=== PATIENT | female | born 1980 | race Caucasian/White ===

== ENCOUNTER 2017-06-14 08:51 | Emergency (ER) | payer MEDICAID, SELFPAY | END 2017-06-14 10:38 | disposition home or self-care (01) | PROVIDERS: Emergency Provider Nurse Practitioner Family; Family Provider Family Medicine; Visit Provider Nurse Practitioner Family | DX: S60.862A Insect bite (nonvenomous) of left wrist, initial encounter (principal); S60.861A Insect bite (nonvenomous) of right wrist, initial encounter; L08.9 Local infection of the skin and subcutaneous tissue, unspecified; F17.210 Nicotine dependence, cigarettes, uncomplicated; F41.8 Other specified anxiety disorders; Z88.8 Allergy status to other drugs, medicaments and biological substances | CPT/HCPCS: 87070; 96372; 99202 ==

== ENCOUNTER 2017-06-24 08:00 | Outpatient (RCR) | payer OTHER, SELFPAY | END 2017-06-24 23:59 | LOC: PT 08:00 | PROVIDERS: PCP Family Medicine; Visit Provider Orthopaedic Surgery | DX: S43.431A Superior glenoid labrum lesion of right shoulder, initial encounter (principal) | CPT/HCPCS: 97010; 97014; 97016; 97033; 97110; 97140; 97162; 97164; G0283 ==

== ENCOUNTER 2017-06-25 17:25 | Emergency (ER) | payer MEDICAID, SELFPAY ==
[2017-06-25 18:35] VITALS: BP 122/73; PULSE 75; RESP 18; TEMP 37.5; O2SAT 98; BMI 30.7
--- NOTE | 2017-06-25 19:16 | HMH.EDALLER ---
ED Disposition Clinical Impression: Acute urticaria, Viral upper respiratory illness, Influenza B Disposition: Home, Self-Care Condition on Discharge: Good Instructions: DI for Viral Upper Respiratory Infection -- Adult, DI for Hives, DI for Influenza -- Adult Additional Instructions: Additional instructions for ALLERGIC REACTION: See your physician as soon as possible for further evaluation. Return immediately if severe intolerable rash or itching, trouble breathing, or faintness. Additional instructions for UPPER RESPIRATORY INFECTION: See your physician as soon as possible for further evaluation. Return immediately if you have an uncontrollable fever greater than 104 degrees, difficulty breathing or shortness of breath, persistent vomiting, or inability to swallow. Prescriptions: Famotidine [Pepcid 20mg Tablet] 20 mg PO BID 5 Days #10 tablet hydrOXYzine pamoate [Hydroxyzine Pamoate] 50 mg PO Q6H 5 Days #20 capsule predniSONE [Prednisone 20mg Tab] 40 mg PO DAILY 5 Days #10 tab Referrals: Klever Pagan [Primary Care Provider] - - Critical Care Critical Care Time: No Attestation: On 06/25/17, the high probability of a clinically significant, sudden or life threatening deterioration of the following system(s) required my full and direct attention, intervention and personal management. The time I documented below is in addition to time spent performing reported procedures but includes the following listed in this critical care notation. Medical Decision Making Vital Signs: 06/25/17 18:35 Temperature 99.5 F Temperature Source Oral Pulse Rate [Left Radial] 75 Respiratory Rate 18 Blood Pressure [Right Arm] 122/73 Blood Pressure Mean [Right Arm] 89 Blood Pressure Source [Right Arm] Automatic Cuff Blood Pressure Position [Right Arm] Sitting 02 Sat by Pulse Oximetry 98 Oxygen Delivery Method Room Air - Lab Data Lab Results 06/25/17 19:08: Influenza Type A Ag Negative, Influenza Type B Ag Positive Orders (Tests/Meds): ED MEDICATIONS Generic Name Dose Route Start Last Admin Trade Name Freq PRN Reason Stop Dose Admin Sodium Chloride 10 ml 06/25/17 19:15 Saline Flush 10ml Syringe IV 07/25/17 19:14 NEEDED PRN Maintain IV Site Discontinued Medications Generic Name Dose Route Start Last Admin Trade Name Freq PRN Reason Stop Dose Admin Diphenhydramine HCl 25 mg 06/25/17 19:15 Benadryl 50mg/1ml Vial IV 06/25/17 19:16 ONCE ONE Famotidine 20 mg 06/25/17 19:15 Pepcid 20mg/2ml Vial IV 06/25/17 19:16 ONCE ONE Methylprednisolone Sodium Succinate 125 mg 06/25/17 19:15 Solu-Medrol 125mg/2ml Vial IV 06/25/17 19:16 ONCE ONE - Demarco Inquiry Pt receiving controlled substance: No Medical Decision Making Narrative: Discussed influenza B result. Discussed Tamiflu. The patient's symptoms have been present righted about 48 hours. She declines Tamiflu. Allergic React/Insect Bite HPI - General Chief complaint: Allergic Reaction Stated complaint: Rash Mode of Arrival - ED Triage: Ambulatory Limitations: No Limitations - History of Present Illness HPI narrative: The patient has 2 separate complaints. Her primary complaint is an allergic reaction. She started getting a hive-like rash this morning with some swelling of her right hand. The rash is pruritic. She has taken Benadryl for the rash. She has a previous similar allergic reaction which she believed was secondary to a spider bite. She also currently has a respiratory infection with cough congestion. No fever. She has been taking DayQuil and [id number] sinus medication for that. Allergies/Adverse Reactions: Allergies Allergy/AdvReac Type Severity Reaction Status Date / Time promethazine [From PHENERGAN] Allergy Unknown Verified 06/25/17 19:40 sumatriptan [From IMITREX] Allergy Unknown ANAPHYLAXIS Verified 06/25/17 19:40 - Related Data [facility]
--- NOTE | 2017-06-25 19:19 | ED_ITS ---
ED Disposition Clinical Impression: Acute urticaria, Viral upper respiratory illness, Influenza B Disposition: Home, Self-Care Condition on Discharge: Good Instructions: DI for Viral Upper Respiratory Infection -- Adult, DI for Hives, DI for Influenza -- Adult Additional Instructions: Additional instructions for ALLERGIC REACTION: See your physician as soon as possible for further evaluation. Return immediately if severe intolerable rash or itching, trouble breathing, or faintness. Additional instructions for UPPER RESPIRATORY INFECTION: See your physician as soon as possible for further evaluation. Return immediately if you have an uncontrollable fever greater than 104 degrees, difficulty breathing or shortness of breath, persistent vomiting, or inability to swallow. Prescriptions: Famotidine [Pepcid 20mg Tablet] 20 mg PO BID 5 Days #10 tablet hydrOXYzine pamoate [Hydroxyzine Pamoate] 50 mg PO Q6H 5 Days #20 capsule predniSONE [Prednisone 20mg Tab] 40 mg PO DAILY 5 Days #10 tab Referrals: Klever Pagan [Primary Care Provider] - - Critical Care Critical Care Time: No Attestation: On 06/25/17, the high probability of a clinically significant, sudden or life threatening deterioration of the following system(s) required my full and direct attention, intervention and personal management. The time I documented below is in addition to time spent performing reported procedures but includes the following listed in this critical care notation. Medical Decision Making Vital Signs: 06/25/17 18:35 Temperature 99.5 F Temperature Source Oral Pulse Rate [Left Radial] 75 Respiratory Rate 18 Blood Pressure [Right Arm] 122/73 Blood Pressure Mean [Right Arm] 89 Blood Pressure Source [Right Arm] Automatic Cuff Blood Pressure Position [Right Arm] Sitting 02 Sat by Pulse Oximetry 98 Oxygen Delivery Method Room Air - Lab Data Lab Results 06/25/17 19:08: Influenza Type A Ag Negative, Influenza Type B Ag Positive Orders (Tests/Meds): ED MEDICATIONS Generic Name Dose Route Start Last Admin Trade Name Freq PRN Reason Stop Dose Admin Sodium Chloride 10 ml 06/25/17 19:15 Saline Flush 10ml Syringe IV 07/25/17 19:14 NEEDED PRN Maintain IV Site Discontinued Medications Generic Name Dose Route Start Last Admin Trade Name Freq PRN Reason Stop Dose Admin Diphenhydramine HCl 25 mg 06/25/17 19:15 Benadryl 50mg/1ml Vial IV 06/25/17 19:16 ONCE ONE Famotidine 20 mg 06/25/17 19:15 Pepcid 20mg/2ml Vial IV 06/25/17 19:16 ONCE ONE Methylprednisolone Sodium Succinate 125 mg 06/25/17 19:15 Solu-Medrol 125mg/2ml Vial IV 06/25/17 19:16 ONCE ONE - Demarco Inquiry Pt receiving controlled substance: No Medical Decision Making Narrative: Discussed influenza B result. Discussed Tamiflu. The patient's symptoms have been present righted about 48 hours. She declines Tamiflu. Allergic React/Insect Bite HPI - General Chief complaint: Allergic Reaction Stated complaint: Rash Mode of Arrival - ED Triage: Ambulatory Limitations: No Limitations - History of Present Illness HPI narrative: The patient has 2 separate complaints. Her primary complaint is an allergic reaction. She started getting a
[2017-06-25 20:42] VITALS: BP 139/79; PULSE 83; RESP 16; TEMP 37.1; O2SAT 100
== END 2017-06-25 20:44 | disposition home or self-care (01) ==
LOC: UTC 17:29 → ER 18:28
PROVIDERS: Emergency Provider Emergency Medicine; Family Provider Family Medicine; PCP Family Medicine
DX: J11.1 Influenza due to unidentified influenza virus with other respiratory manifestations (principal); L50.9 Urticaria, unspecified; F17.210 Nicotine dependence, cigarettes, uncomplicated
CPT/HCPCS: 87275; 87276; 96374; 96375; 99282

== ENCOUNTER 2017-08-01 08:30 | Outpatient (RCR) | payer OTHER, MEDICAID, SELFPAY | END 2017-08-01 08:31 | disposition home or self-care (01) | LOC: PT 08:30 | PROVIDERS: Family Provider Family Medicine; PCP Family Medicine; Visit Provider Orthopaedic Surgery | DX: S43.431A Superior glenoid labrum lesion of right shoulder, initial encounter (principal) | CPT/HCPCS: 97110; 97164 ==

== ENCOUNTER 2017-08-27 15:27 | Emergency (ER) | payer MEDICAID, SELFPAY ==
[2017-08-27 15:40] VITALS: BP 145/68; PULSE 92; RESP 20; TEMP 36.8; O2SAT 100; BMI 32.8
--- NOTE | 2017-08-27 15:53 | HMH.EDUTC ---
[facility] [place] Clinical Impression: Insect bites and stings Qualifiers: Encounter type: initial encounter Injury intent: accidental or unintentional Qualified Code(s): T63.481A - Toxic effect of venom of other arthropod, accidental (unintentional), initial encounter; W57.XXXA - Bitten or stung by nonvenomous insect and other nonvenomous arthropods, initial encounter Disposition: Home, Self-Care Condition on Discharge: Good Instructions: DI for Insect Bites and Stings, How to Care for an Insect Bite or Sting Additional Instructions: * Start zyrtec 10mg daily and if no improvement, safe to take twice a day for itching * Discussed antibiotics but since you didn't feel like they were necessary multiple previous episodes of same symptoms, we will not start at this time. however, follow up immediately for new or worsening symptoms. * Monitor closely. Outlining redness so that you can monitor easier is a great idea. FU immediately for new or worsening symptoms ( including but not limited to redness, swelling, red streaking, fever, chills) but also FU tomorrow for a wound check * Cool compresses 15 min 3-4 times a day * Monitor Temp. Seek treatment if fever develops. * For pain/inflammation: Tylenol every 4 hours as needed no more then 5 times a day or 4000mg in 24 hours and/or ibuprofen every 6 hours as needed no more then 3200mg in 24 hours (as long as your primary care doctor has told you that it is ok to take both) for fever/aches/pain. ER if fever no less than 101 despite tylenol and ibuprofen * Start steroid tomorrow. You received a fast acting injection of steroids in clinic to help with symptoms today. Prescriptions: methylPREDNISolone [Medrol] 4 mg PO DIRECTED #1 tab.ds.pk Referrals: Klever Pagan [Primary Care Provider] - (Return immediately for new or worsening symptoms but otherwise, follow up with primary care in 1-2 days if not improving. ) Time of Disposition: 16:24 Medical Decision Making - Medical Records Medical records reviewed: Yes: I reviewed the patient's medical records. MR Comment: May 2017 visit for same symptoms. Seen by me. Same HPI. Treated w/ dexamethasone and rocephin. Rx clindamycin and medrol dose pack. Wound culture negative for growth. Pt denies needing antibiotics. Resolved with just steroids. Vital Signs: 08/27/17 15:40 Temperature 98.3 F Temperature Source Oral Pulse Rate [Right Brachial] 92 H Respiratory Rate 20 Blood Pressure [Right Arm] 145/68 Blood Pressure Mean [Right Arm] 93 Blood Pressure Source [Right Arm] Automatic Cuff Blood Pressure Position [Right Arm] Sitting 02 Sat by Pulse Oximetry 100 Oxygen Delivery Method Room Air Orders (Tests/Meds): ED MEDICATIONS Discontinued Medications Generic Name Dose Route Start Last Admin Trade Name Lance PRN Reason Stop Dose Admin Dexamethasone Sodium Phosphate 8 mg 08/27/17 16:03 08/27/17 16:11 Decadron 4mg/Ml 1ml Vial IM 08/27/17 16:04 8 mg ONCE ONE Administration - Demarco Inquiry Pt receiving controlled substance: No - Reevaluation(s) Time: 16:20 Reevaluation #1: Itching already nearly resolved. lateral less erythematous around border and medial 50 % resolved. [facility] [place] HPI - General Stated complaint: Possible spider bite on right upper arm Time Seen by Provider: 08/27/17 15:53 Mode of Arrival: Family Vehicle Source of Information: Patient Limitations: No Limitations Description of Symptoms (Recalled from Triage Doc. by RN): possible spider bite right arm HEENT Symptoms (Recalled from RN notes): No Resp Symptoms (Recalled from RN notes): No Skin Symptoms (Recalled from RN notes): Yes (possible spider bite right arm) MS Symptoms (Recalled from RN notes): No Functional Status (Recalled from RN notes): n/a - History of Present Illness Provider Complaint: c/o itchy bites to right upper arm, x2. First noticed yesterday but worsened today. Hx of ramírez spider bites in the past with exact same symptoms . No treatme
--- NOTE | 2017-08-27 15:58 | ED_ITS ---
[facility] [place] Disposition Clinical Impression: Insect bites and stings Qualifiers: Encounter type: initial encounter Injury intent: accidental or unintentional Qualified Code(s): T63.481A - Toxic effect of venom of other arthropod, accidental (unintentional), initial encounter; W57.XXXA - Bitten or stung by nonvenomous insect and other nonvenomous arthropods, initial encounter Disposition: Home, Self-Care Condition on Discharge: Good Instructions: DI for Insect Bites and Stings, How to Care for an Insect Bite or Sting Additional Instructions: * Start zyrtec 10mg daily and if no improvement, safe to take twice a day for itching * Discussed antibiotics but since you didn't feel like they were necessary multiple previous episodes of same symptoms, we will not start at this time. however, follow up immediately for new or worsening symptoms. * Monitor closely. Outlining redness so that you can monitor easier is a great idea. FU immediately for new or worsening symptoms ( including but not limited to redness, swelling, red streaking, fever, chills) but also FU tomorrow for a wound check * Cool compresses 15 min 3-4 times a day * Monitor Temp. Seek treatment if fever develops. * For pain/inflammation: Tylenol every 4 hours as needed no more then 5 times a day or 4000mg in 24 hours and/or ibuprofen every 6 hours as needed no more then 3200mg in 24 hours (as long as your primary care doctor has told you that it is ok to take both) for fever/aches/pain. ER if fever no less than 101 despite tylenol and ibuprofen * Start steroid tomorrow. You received a fast acting injection of steroids in clinic to help with symptoms today. Prescriptions: methylPREDNISolone [Medrol] 4 mg PO DIRECTED #1 tab.ds.pk Referrals: Klever Pagan [Primary Care Provider] - (Return immediately for new or worsening symptoms but otherwise, follow up with primary care in 1-2 days if not improving. ) Time of Disposition: 16:24 Medical Decision Making - Medical Records Medical records reviewed: Yes: I reviewed the patient's medical records. MR Comment: May 2017 visit for same symptoms. Seen by me. Same HPI. Treated w/ dexamethasone and rocephin. Rx clindamycin and medrol dose pack. Wound culture negative for growth. Pt denies needing antibiotics. Resolved with just steroids. Vital Signs: 08/27/17 15:40 Temperature 98.3 F Temperature Source Oral Pulse Rate [Right Brachial] 92 H Respiratory Rate 20 Blood Pressure [Right Arm] 145/68 Blood Pressure Mean [Right Arm] 93 Blood Pressure Source [Right Arm] Automatic Cuff Blood Pressure Position [Right Arm] Sitting 02 Sat by Pulse Oximetry 100 Oxygen Delivery Method Room Air Orders (Tests/Meds): ED MEDICATIONS Discontinued Medications Generic Name Dose Route Start Last Admin Trade Name Freq PRN Reason Stop Dose Admin Dexamethasone Sodium Phosphate 8 mg 08/27/17 16:03 08/27/17 16:11 Decadron 4mg/Ml 1ml Vial IM 08/27/17 16:04 8 mg ONCE ONE Administration - Demarco Inquiry Pt receiving controlled substance: No - Reevaluation(s) Time: 16:20 Reevaluation #1: Itching already nearly resolved. lateral less erythematous around border and medial 50 % resolved. [facility] [place] HPI - General Stated complaint: Possible spider bite on right upper arm Time Seen by Provider: 08/27/17 15:53 Mode of Arrival: Family Vehicle Source of Information: Patient Limitations: No Limitations Description of Symptoms (R
[2017-08-27 16:30] VITALS: BP 138/70; PULSE 88; RESP 20; TEMP 36.9; O2SAT 100
== END 2017-08-27 16:32 | disposition home or self-care (01) ==
PROVIDERS: Emergency Provider Nurse Practitioner Family; Family Provider Family Medicine; PCP Family Medicine
DX: S50.361A Insect bite (nonvenomous) of right elbow, initial encounter (principal); W57.XXXA Bitten or stung by nonvenomous insect and other nonvenomous arthropods, initial encounter; Z88.8 Allergy status to other drugs, medicaments and biological substances
CPT/HCPCS: 96372; 99202

== ENCOUNTER 2020-05-05 15:42 | Emergency (ER) | payer BC, MEDICAID, SELFPAY ==
--- NOTE | 2020-05-05 15:37 | ECG_ITS ---
APPROVED REPORT Exam: Resting ECG HR:92 bpm ECG Measurements Heart Rate 92 AXES OH 150 P 65 QRSd 88 QRS 71 QT 372 T 56 QTc 460 Conclusion Normal sinus rhythm Normal ECG Electronically signed by : Jed Duran, 05/07/2020 06:52:59
[2020-05-05 15:42] VITALS: BP 163/100; PULSE 93; RESP 17; TEMP 36.6; O2SAT 98; BMI 35.5
[2020-05-05 15:59] LABS: Basophils # 0.1 K/mm3 (0-0.2); Basophils % 0.7 % (0.1-2.0); Eosinophils # 0.1 K/mm3 (0.0-0.4); Eosinophils % 0.9 % (0.1-12.0); Hematocrit 42.1 % (37.0-47.0); Hemoglobin 13.8 g/dL (12.2-16.2); Lymphocytes # 3.7 K/mm3 (0.7-4.5); Lymphocytes % 43.7 % (10-50); Mean Corpuscular HGB Conc 32.8 g/dL (31.8-35.4); Mean Corpuscular Hemoglobin 29.5 pg (27.0-31.2); Mean Corpuscular Volume 89.9 fl (81-99); Mean Platelet Volume 6.9 fl (7.4-10.4); Monocytes # 0.4 K/mm3 (0.1-1.0); Monocytes % 4.5 % (1.7-9.3); Neutrophils # 4.3 K/mm3 (1.8-7.8); Neutrophils % 50.2 % (37.0-80.0); Platelet Count 377 K/mm3 (142-424); Red Blood Count 4.68 M/mm3 (4.20-5.40); Red Cell Distribution Width 12.9 % (11.5-17.5); White Blood Count 8.5 K/mm3 (4.8-10.8)
[2020-05-05 16:03] LABS: Chloride 103 mmol/L (98-107)
[2020-05-05 16:04] LABS: Sodium 138 mmol/L (136-145)
[2020-05-05 16:07] LABS: Blood Urea Nitrogen 10 mg/dl (7-17); Calcium 9.5 mg/dl (8.4-10.2); Carbon Dioxide 26 mmol/L (22.0-30.0); Creatinine Clearance Estimated 164 mL/min (50-200); Estimated Glomerular Filt Rate 111 ml/min (>60); GFR (African American) 135 ML/MIN (>60); Glucose 99 mg/dl (74-100)
--- NOTE | 2020-05-05 16:07 | XR_ITS ---
PROCEDURE: XR CHEST 2V CLINICAL HISTORY: chest pain COMPARISON: No exams were available for comparison FINDINGS: The cardiomediastinal silhouette and pulmonary vascularity are within normal limits. No lobar consolidation or collapse. On the lateral view there is an 8 mm nodular opacity overlying the T5 vertebral body not readily identified on the frontal view possibly in the left upper lobe where there is a faint nodular opacity in this region on the frontal view. No acute bony abnormalities. IMPRESSION: No acute finding. Possible left upper/paraspinal nodule. Follow-up may confirm stability Dictated by: Nino Deleon MD 05/05/2020 17:20 Nino Dleeon MD in [place] 05/05/2020 17:20
[2020-05-05 16:10] VITALS: BP 137/85; PULSE 85; O2SAT 98
--- NOTE | 2020-05-05 16:17 | HMH.EDGENADL ---
ED Disposition Clinical Impression: Esophagitis Disposition: Home, Self-Care Condition on Discharge: Good Instructions: DI for Atypical Chest Pain, DI for Esophagitis Additional Instructions: Protonix as prescribed. Follow-up with primary care provider or with Dr. Dimas if not improved by Friday. Additional instructions for CHEST PAIN: See your physician as soon as possible for further evaluation. Return immediately if worsening chest pain, vomiting, shortness of breath, fever, coughing of blood. Prescriptions: Pantoprazole Sodium [Protonix 40mg tablet] 40 mg PO DAILY #10 tab Transmission Status: Pending to [id number] Referrals: PCPGwen [Primary Care Provider] - Rashel Dimas MD [Staff Physician] - - Critical Care Critical Care Time: No Attestation: On , the high probability of a clinically significant, sudden or life threatening deterioration of the following system(s) required my full and direct attention, intervention and personal management. The time I documented below is in addition to time spent performing reported procedures but includes the following listed in this critical care notation. Medical Decision Making - Demarco Inquiry Pt receiving controlled substance: No Vital Signs: 05/05/20 15:42 05/05/20 16:10 05/05/20 16:30 Temperature 98 F Temperature Source Oral Pulse Rate [Right Brachial] 93 H 85 86 Respiratory Rate 17 Blood Pressure [Right Arm] 163/100 H 137/85 186/104 H Blood Pressure Mean [Right Arm] 121 102 131 Blood Pressure Source [Right Arm] Automatic Cuff Automatic Cuff Automatic Cuff Blood Pressure Position [Right Arm] Sitting Sitting Sitting 02 Sat by Pulse Oximetry 98 98 96 Oxygen Delivery Method Room Air Room Air Room Air 05/05/20 16:45 Temperature Temperature Source Pulse Rate [Right Brachial] 74 Respiratory Rate Blood Pressure [Right Arm] 138/96 H Blood Pressure Mean [Right Arm] 110 Blood Pressure Source [Right Arm] Automatic Cuff Blood Pressure Position [Right Arm] Sitting 02 Sat by Pulse Oximetry 97 Oxygen Delivery Method Room Air - Lab Data Lab Results 05/05/20 15:48: WBC 8.5, RBC 4.68, Hgb 13.8, Hct 42.1, MCV 89.9, MCH 29.5, MCHC 32.8, RDW 12.9, Plt Count 377, MPV 6.9 L, Neut % (Auto) 50.2, Lymph % (Auto) 43.7, Miller % (Auto) 4.5, Eos % (Auto) 0.9, Baso % (Auto) 0.7, Neut # (Auto) 4.3, Lymph # (Auto) 3.7, Miller # (Auto) 0.4, Eos # (Auto) 0.1, Baso # (Auto) 0.1 05/05/20 15:48: Sodium 138, Potassium 4.0, Chloride 103, Carbon Dioxide 26, Anion Gap 13.0, BUN 10, Creatinine 0.60, Estimated Creat Clear 164, Estimated GFR 111, Est GFR ( Amer) 135, Glucose 99, Calcium 9.5, Troponin I < 0.01 Result diagrams: 05/05/20 15:48 05/05/20 15:48 Orders (Tests/Meds): ED MEDICATIONS Generic Name Dose Route Start Last Admin Trade Name Freq PRN Reason Stop Dose Admin Sodium Chloride 10 ml 05/05/20 16:30 05/05/20 16:38 Sodium Chloride 0.9% 10ml Vial IV 06/04/20 16:29 10 ml NEEDED PRN Administration dilute protonix Discontinued Medications Generic Name Dose Route Start Last Admin Trade Name Freq PRN Reason Stop Dose Admin Belladonna Alkaloids 60 ml 05/05/20 16:30 05/05/20 16:38 Gi Cocktail 60ml Udc PO 05/05/20 16:31 60 ml ONCE ONE Administration Pantoprazole Sodium 40 mg 05/05/20 16:30 05/05/20 16:38 Pantoprazole 40mg Vial IV 05/05/20 16:31 40 mg ONCE ONE Administration ORDERS Category Date Time Status Chest XR 2 view (NOT portable) [XR chest 2V] Stat Exams 05/05/20 16:07 Taken Troponin I Q3H Lab 05/05/20 19:00 Ordered Troponin I Q3H Lab 05/05/20 22:00 Ordered - Radiology Data #1 Image(s): Chest Image Reviewed: Yes I reviewed the patient's radiology image Preliminary Findings: Normal/NAD - ECG Data Tracing #1 EKG interpreted by Tito Polo MD: Rhythm: sinus Rate: 92 [place]: normal Ectopy: none Conduction: normal ST Segment Changes: none T Wav
[2020-05-05 16:20] LABS: Troponin I < 0.01 ng/ml (0.00-0.034)
--- NOTE | 2020-05-05 16:22 | PC.NURSE ---
pt gone to xray
--- NOTE | 2020-05-05 16:25 | PC.NURSE ---
pt back from [facility]. at bedside
[2020-05-05 16:30] VITALS: BP 186/104; PULSE 86; O2SAT 96
[2020-05-05 16:45] VITALS: BP 138/96; PULSE 74; O2SAT 97
[2020-05-05 17:08] VITALS: BP 136/82; PULSE 80; RESP 16; TEMP 36.6; O2SAT 98
== END 2020-05-05 17:22 | disposition home or self-care (01) ==
PROVIDERS: Emergency Provider Emergency Medicine
DX: K20.90 Esophagitis, unspecified without bleeding (principal); Z87.891 Personal history of nicotine dependence; F17.210 Nicotine dependence, cigarettes, uncomplicated; Z79.899 Other long term (current) drug therapy
CPT/HCPCS: 71046; 80048; 84484; 85025; 93005; 96374; 99283

== ENCOUNTER → 2020-09-12 12:49 | Outpatient (CLI) | payer BC, MEDICAID, SELFPAY ==
[2020-09-12 13:02] LABS: Basophils # 0.1 K/mm3 (0-0.2); Basophils % 0.5 % (0.1-2.0); Eosinophils # 0.1 K/mm3 (0.0-0.4); Eosinophils % 0.7 % (0.1-12.0); Hematocrit 40.6 % (37.0-47.0); Lymphocytes # 4.3 K/mm3 (0.7-4.5); Lymphocytes % 38.4 % (10-50); Mean Corpuscular HGB Conc 34.5 g/dL (31.8-35.4); Mean Corpuscular Hemoglobin 30.3 pg (27.0-31.2); Mean Corpuscular Volume 87.9 fl (81-99); Monocytes # 0.5 K/mm3 (0.1-1.0); Monocytes % 4.8 % (1.7-9.3); Neutrophils # 6.2 K/mm3 (1.8-7.8); Neutrophils % 55.7 % (37.0-80.0); Platelet Count 383 K/mm3 (142-424); Red Blood Count 4.62 M/mm3 (4.20-5.40); Red Cell Distribution Width 13.3 % (11.5-17.5); White Blood Count 11.2 K/mm3 (4.8-10.8)
--- NOTE | 2020-09-12 13:17 | US_ITS ---
PROCEDURE: US ABDOMEN LIMITED CLINICAL INDICATION: RUQ ABD PAIN COMPARISON: CT CT ABDOMEN PELVIS W CON from 06/13/2019 FINDINGS: PANCREAS: Unremarkable. No obvious mass or abnormal fluid collection. No ductal dilatation LIVER: Increased echogenicity of the liver suggesting fatty liver. There is a small area of decreased echogenicity anterior to the gallbladder fossa measuring 1 cm may be due to focal fatty sparing. Cannot exclude the possibility of a liver lesion. Nonemergent CT of the liver with hemangioma protocol may provide further evaluation. RIGHT KIDNEY: Unremarkable. Normal size and echogenicity. No hydronephrosis GALLBLADDER: No gallstones, gallbladder wall thickening, pericholecystic fluid, or biliary dilatation. Common bile duct is upper normal at 5 mm. IMPRESSION: Negative gallbladder ultrasound. Possible small liver lesion as described above Dictated by: Nino Deleon MD 09/12/2020 14:08 Nino Deleon MD in [place] 09/12/2020 14:08
[2020-09-12 13:31] LABS: Chloride 108 mmol/L (98-107); Potassium 4.4 mmoL/L (3.5-5.1); Sodium 140 mmol/L (136-145)
[2020-09-12 13:33] LABS: Alanine Aminotransferase 29 U/L (12-78); Aspartate Amino Transferase 100 U/L (14-36); Blood Urea Nitrogen 10 mg/dl (7-17); Estimated Glomerular Filt Rate 111 ml/min (>60); GFR (African American) 134 ML/MIN (>60)
[2020-09-12 13:34] LABS: Albumin Level 4.5 g/dl (3.5-5.0); Albumin/Globulin Ratio 1.7 (1.1-1.8); Alkaline Phosphatase 80 U/L (38-126); Anion Gap 12.4 mEq/L (5-15); Bilirubin,Total 0.6 mg/dl (0.2-1.3); Calcium 9.6 mg/dl (8.4-10.2); Carbon Dioxide 24 mmol/L (22.0-30.0); Globulin 2.7 g/dL (1.3-3.2); Glucose 101 mg/dl (74-100); Lipase 99 U/L (23-300); Total Protein,Serum 7.2 g/dl (6.3-8.2)
== END ==
PROVIDERS: PCP Internal Medicine Adolescent Medicine; Visit Provider Internal Medicine Adolescent Medicine
DX: R10.11 Right upper quadrant pain (principal)
CPT/HCPCS: 36415; 76705; 80053; 83690; 85025

== ENCOUNTER 2020-11-25 12:33 | Emergency (ER) | payer BC, MEDICAID, SELFPAY ==
[2020-11-25 12:56] VITALS: BP 145/80; PULSE 83; RESP 16; TEMP 36.6; O2SAT 97; BMI 35.2
--- NOTE | 2020-11-25 13:00 | XR_ITS ---
PROCEDURE INFORMATION: Exam: XR Right Shoulder Exam date and time: 11/25/2020 1:00 PM Age: 40 years old Clinical indication: Pain; Shoulder; Right; Prior surgery; Surgery date: 6+ months TECHNIQUE: Imaging protocol: XR Right shoulder. Views: 2 or more views. COMPARISON: No relevant prior studies available. FINDINGS: Bones/joints: Normal. Soft tissues: Normal. IMPRESSION: No acute findings.
--- NOTE | 2020-11-25 13:28 | HMH.EDUTC ---
[facility] Disposition Clinical Impression: Right shoulder pain Qualifiers: Chronicity: acute Qualified Code(s): M25.511 - Pain in right shoulder Disposition: Home, Self-Care Condition on Discharge: Good Additional Instructions: Rest the extremity, apply ice for 15 minutes as tolerated three or four times per day, Elevate the extremity as tolerated while you are resting. Take ibuprofen for pain. I sent in a prescription to your pharmacy. Follow up with Dr. Duque (orthopedics). I put in a referral but you need to call his office and schedule an appointment. Follow up with your regular doctor. GO TO THE ER FOR ANY WORSENING SYMPTOMS Prescriptions: Ibuprofen [Ibuprofen 600mg Tablet] 600 mg PO Q6HP PRN #30 tab PRN Reason: Mild Pain Transmission Status: Received by [id number] Referrals: Rodo House MD [Primary Care Provider] - Gurjit Duque MD [Staff Physician] - Forms: Work/School Release Time of Disposition: 13:42 Medical Decision Making - Medical Records Medical records reviewed: No: I reviewed the patient's medical records. - Demarco Inquiry Pt receiving controlled substance: No Vital Signs: 11/25/20 12:56 11/25/20 13:47 Temperature 98 F 98 F Temperature Source Tympanic Pulse Rate 80 Pulse Rate [Right] 83 Respiratory Rate 16 16 Blood Pressure 142/84 H Blood Pressure [Right Arm] 145/80 H Blood Pressure Mean [Right Arm] 101 Blood Pressure Source [Right Arm] Automatic Cuff 02 Sat by Pulse Oximetry 97 Orders (Tests/Meds): ED MEDICATIONS Discontinued Medications Generic Name Dose Route Start Last Admin Trade Name Freq PRN Reason Stop Dose Admin Ketorolac Tromethamine 60 mg 11/25/20 13:28 11/25/20 13:36 Ketorolac 60mg/2ml Vial IM 11/25/20 13:29 60 mg ONCE ONE Administration - Radiology Data #1 Image(s): Shoulder Image Reviewed: Yes I reviewed the patient's radiology image, Yes I have reviewed radiologist's interpretation Preliminary Findings: No Fracture Seen PROCEDURE INFORMATION: Exam: XR Right Shoulder Exam date and time: 11/25/2020 1:00 PM Age: 40 years old Clinical indication: Pain; Shoulder; Right; Prior surgery; Surgery date: 6+ months TECHNIQUE: Imaging protocol: XR Right shoulder. Views: 2 or more views. COMPARISON: No relevant prior studies available. FINDINGS: Bones/joints: Normal. Soft tissues: Normal. IMPRESSION: No acute findings. [facility] HPI - General Stated complaint: Rt shoulder pain Time Seen by Provider: 11/25/20 12:50 Mode of Arrival: Ambulatory Source of Information: Patient Limitations: No Limitations Description of Symptoms (Recalled from Triage Doc. by RN): pt c/o R shoulder and scapula pain. pt states she has had shoulder surgery and has four anchors. 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 The pain is worse with certain movements. She denies any injury. - Related Data Previous Rx's Medication Instructions Recorded estradiol 2 mg tablet 2 mg PO DAILY #90 tab 06/30/19 Pantoprazole Sodium [Protonix 40mg 40 mg PO DAILY #10 tab 05/05/20 tablet] Ibuprofen [Ibuprofen 600mg 600 mg PO Q6HP PRN #30 tab 11/25/20 Tablet] Allergies Allergy/AdvReac Type Severity Reaction Status Date / Time promethazine [From PHENERGAN] Allergy Unknown Verified 08/12/19 11:24 sumatriptan [From IMITREX] Allergy Unknown ANAPHYLAXIS Verified 08/12/19 11:24 - Worker's Comp Is this a Worker's Comp case?: No [facility] Histo
[2020-11-25 13:47] VITALS: BP 142/84; PULSE 80; RESP 16; TEMP 36.6
== END 2020-11-25 13:53 | disposition home or self-care (01) ==
PROVIDERS: Emergency Provider Nurse Practitioner Family; PCP Internal Medicine Adolescent Medicine
DX: M25.511 Pain in right shoulder (principal); Z87.891 Personal history of nicotine dependence
CPT/HCPCS: 73030; 96372; 99202; G0463

== ENCOUNTER 2021-01-21 18:50 | Emergency (ER) | payer BC, MEDICAID, SELFPAY ==
[2021-01-21 19:26] VITALS: BP 167/92; PULSE 88; RESP 18; TEMP 36.6; O2SAT 97; BMI 34.5
[2021-01-21 20:52] LABS: Apearance,Urine Cloudy (Clear); Color,Urine Yellow (Yellow); PH,Urine 5.5 (5.0-8.5); Specific Gravity, Urine > 1.030 (1.005-1.030)
[2021-01-21 20:53] LABS: Bilirubin,Urine Negative (Negative); Blood, Urine Trace (Negative); Glucose,Urine (UA) Negative (Negative); Ketones,Urine Negative (Negative); Protein,Urine Negative (Negative); UTC Leukocyte Esterase,Urine Negative (Negative); UTC Nitrate,Urine Negative (Negative); Urobilinogen,Urine 0.2 EU/dl (0.2)
[2021-01-21 21:00] LABS: Basophils # 0.1 K/mm3 (0-0.2); Basophils % 0.9 % (0.1-2.0); Eosinophils # 0.1 K/mm3 (0.0-0.4); Eosinophils % 0.9 % (0.1-12.0); Hematocrit 40.1 % (37.0-47.0); Hemoglobin 13.7 g/dL (12.2-16.2); Lymphocytes # 4.3 K/mm3 (0.7-4.5); Lymphocytes % 42.9 % (10-50); Mean Corpuscular HGB Conc 34.2 g/dL (31.8-35.4); Mean Corpuscular Hemoglobin 29.8 pg (27.0-31.2); Mean Corpuscular Volume 87.2 fl (81-99); Mean Platelet Volume 7.5 fl (7.4-10.4); Monocytes # 0.5 K/mm3 (0.1-1.0); Monocytes % 4.8 % (1.7-9.3); Neutrophils % 50.5 % (37.0-80.0); Platelet Count 398 K/mm3 (142-424); Red Cell Distribution Width 13.6 % (11.5-17.5); White Blood Count 9.9 K/mm3 (4.8-10.8)
[2021-01-21 21:02] LABS: Chloride 105 mmol/L (98-107); Potassium 3.7 mmoL/L (3.5-5.1); Sodium 141 mmol/L (136-145)
[2021-01-21 21:04] LABS: Alanine Aminotransferase 23 U/L (12-78); Aspartate Amino Transferase 28 U/L (14-36); Blood Urea Nitrogen 11 mg/dl (7-17); Creatinine Clearance Estimated 135 mL/min (50-200); Estimated Glomerular Filt Rate 93 ml/min (>60); GFR (African American) 112 ML/MIN (>60)
[2021-01-21 21:05] LABS: Albumin Level 4.5 g/dl (3.5-5.0); Albumin/Globulin Ratio 1.4 (1.1-1.8); Alkaline Phosphatase 72 U/L (38-126); Anion Gap 11.7 mEq/L (5-15); Bilirubin,Total 0.4 mg/dl (0.2-1.3); Calcium 9.4 mg/dl (8.4-10.2); Carbon Dioxide 28 mmol/L (22.0-30.0); Globulin 3.3 g/dL (1.3-3.2); Glucose 93 mg/dl (74-100); Total Protein,Serum 7.8 g/dl (6.3-8.2)
--- NOTE | 2021-01-21 21:14 | HMH.EDUTC ---
[facility] [place] Disposition Clinical Impression: Pelvic pain Abdominal pain Qualifiers: Abdominal location: left lower quadrant Qualified Code(s): R10.32 - Left lower quadrant pain Disposition: Still a Patient Condition on Discharge: Fair Referrals: Daniel Joshi MD [Primary Care Provider] - Time of Disposition: 21:20 Medical Decision Making - Medical Records Medical records reviewed: No: I reviewed the patient's medical records. - Demarco Inquiry Pt receiving controlled substance: No Vital Signs: 01/21/21 19:26 Temperature 97.9 F Temperature Source Oral Pulse Rate [Left] 88 Respiratory Rate 18 Blood Pressure [Right Arm] 167/92 H Blood Pressure Mean [Right Arm] 117 02 Sat by Pulse Oximetry 97 - Lab Data Lab results reviewed: Yes: I reviewed the patient's lab results. Lab Results 01/21/21 20:25: WBC 9.9, RBC 4.60, Hgb 13.7, Hct 40.1, MCV 87.2, MCH 29.8, MCHC 34.2, RDW 13.6, Plt Count 398, MPV 7.5, Neut % (Auto) 50.5, Lymph % (Auto) 42.9, [place] % (Auto) 4.8, Eos % (Auto) 0.9, Baso % (Auto) 0.9, Neut # (Auto) 5.0, Lymph # (Auto) 4.3, [place] # (Auto) 0.5, Eos # (Auto) 0.1, Baso # (Auto) 0.1 01/21/21 20:25: Sodium 141, Potassium 3.7, Chloride 105, Carbon Dioxide 28, Anion Gap 11.7, BUN 11, Creatinine 0.70, Estimated Creat Clear 135, Estimated GFR 93, Est GFR ( Amer) 112, Glucose 93, Calcium 9.4, Total Bilirubin 0.4, AST 28, ALT 23, Alkaline Phosphatase 72, Total Protein 7.8, Albumin 4.5, Globulin 3.3 H, Albumin/Globulin Ratio 1.4 01/21/21 20:51: Urine Color Yellow, Urine Appearance Cloudy, Urine pH 5.5, Ur Specific [place] > 1.030 H, Urine Protein Negative, Urine Glucose (UA) Negative, Urine Ketones Negative, Urine Blood Trace, Urine Nitrate Negative, Urine Bilirubin Negative, Urine Urobilinogen 0.2, Ur Leukocyte Esterase Negative Result diagrams: 01/21/21 20:25 01/21/21 20:25 Medical Decision Narrative: She was transferred to the er due to her complaints of lower abdominal pain after her u/a was noted to be essentially normal. [facility] [place] HPI - General Stated complaint: pelvic pain and pressure Time Seen by Provider: 01/21/21 19:45 Mode of Arrival: Ambulatory Source of Information: Patient Limitations: No Limitations Description of Symptoms (Recalled from Triage Doc. by RN): pt c/o pelvic, perineal, and anal pressure and pain. pt also states her urogential area is swollen. she describes it as the pressure when you are in labor. HEENT Symptoms (Recalled from RN notes): No Resp Symptoms (Recalled from RN notes): No Skin Symptoms (Recalled from RN notes): No MS Symptoms (Recalled from RN notes): No Functional Status (Recalled from RN notes): na - History of Present Illness Provider Complaint: She states that for the past 1 day she has had low back pain, lower abdomen pain, vaginal pain, and pelvic pressure . She denies any injury. She denies any dysuria or urinary complaints. She states that she is not constipated or having diarrhea. She denies nausea/vomiting. - Related Data Previous Rx's Medication Instructions Recorded Pantoprazole Sodium [Protonix 40mg 40 mg PO DAILY #10 tab 05/05/20 tablet] Ibuprofen [Ibuprofen 600mg 600 mg PO Q6HP PRN #30 tab 11/25/20 Tablet] estradiol 2 mg tablet See Rx Instructions .ROUTE 01/15/21 .COMPLEX #90 tab Allergies Allergy/AdvReac Type Severity Reaction Status Date / Time promethazine [From PHENERGAN] Allergy Unknown Verified 08/12/19 11:24 sumatriptan [From IMITREX] Allergy Unknown ANAPHYLAXIS Verified 08/12/19 11:24 - Worker's Comp Is this a Worker's Comp case?: No [facility] History - Hepatitis A Screen Drug use history?: No High risk sexual behaviors?: No History of sexually transmitted infection?: No Currently employed?: No Childcare worker?: No Do you have indoor plumbing?: Yes Do you have electricity?: Yes Attestation statement:: This patient has been screened for Hepatitis A risk factors. I have reviewed the patient's past
[2021-01-21 21:28] VITALS: BP 142/70; PULSE 78; RESP 17; TEMP 36.8; O2SAT 98; BMI 33.2
--- NOTE | 2021-01-21 21:39 | HMH.EDGENADL ---
ED Disposition Clinical Impression: Pelvic pain Disposition: Home, Self-Care Condition on Discharge: Good Additional Instructions: Tylenol or ibuprofen for pain. Follow-up with your primary care provider, call this morning to make appointment. Return if worsening pain or new symptoms such as fever. Referrals: Daniel Joshi MD [Primary Care Provider] - - Critical Care Critical Care Time: No Attestation: On 01/21/21, the high probability of a clinically significant, sudden or life threatening deterioration of the following system(s) required my full and direct attention, intervention and personal management. The time I documented below is in addition to time spent performing reported procedures but includes the following listed in this critical care notation. Medical Decision Making - Demarco Inquiry Pt receiving controlled substance: No Vital Signs: 01/21/21 19:26 01/21/21 21:28 Temperature 97.9 F 98.3 F Temperature Source Oral Oral Pulse Rate [Left] 88 78 Respiratory Rate 18 17 Blood Pressure [Right Arm] 167/92 H 142/70 H Blood Pressure Mean [Right Arm] 117 94 Blood Pressure Source [Right Arm] Automatic Cuff Blood Pressure Position [Right Arm] Sitting 02 Sat by Pulse Oximetry 97 98 - Lab Data Lab Results 01/21/21 20:25: WBC 9.9, RBC 4.60, Hgb 13.7, Hct 40.1, MCV 87.2, MCH 29.8, MCHC 34.2, RDW 13.6, Plt Count 398, MPV 7.5, Neut % (Auto) 50.5, Lymph % (Auto) 42.9, [place] % (Auto) 4.8, Eos % (Auto) 0.9, Baso % (Auto) 0.9, Neut # (Auto) 5.0, Lymph # (Auto) 4.3, [place] # (Auto) 0.5, Eos # (Auto) 0.1, Baso # (Auto) 0.1 01/21/21 20:25: Sodium 141, Potassium 3.7, Chloride 105, Carbon Dioxide 28, Anion Gap 11.7, BUN 11, Creatinine 0.70, Estimated Creat Clear 135, Estimated GFR 93, Est GFR ( Amer) 112, Glucose 93, Calcium 9.4, Total Bilirubin 0.4, AST 28, ALT 23, Alkaline Phosphatase 72, Total Protein 7.8, Albumin 4.5, Globulin 3.3 H, Albumin/Globulin Ratio 1.4 01/21/21 20:51: Urine Color Yellow, Urine Appearance Cloudy, Urine pH 5.5, Ur Specific [place] > 1.030 H, Urine Protein Negative, Urine Glucose (UA) Negative, Urine Ketones Negative, Urine Blood Trace, Urine Nitrate Negative, Urine Bilirubin Negative, Urine Urobilinogen 0.2, Ur Leukocyte Esterase Negative Result diagrams: 01/21/21 20:25 01/21/21 20:25 Orders (Tests/Meds): ED MEDICATIONS Discontinued Medications Generic Name Dose Route Start Last Admin Trade Name Lance PRN Reason Stop Dose Admin Iopamidol 75 ml 01/21/21 23:29 01/21/21 23:30 Iopamidol-370 (76%);100ml Bottle IV 01/21/21 23:30 75 ml ONCE ONE Administration Ketorolac Tromethamine 30 mg 01/21/21 23:03 01/21/21 23:04 Ketorolac 30mg/Ml Vial IV 01/21/21 23:04 30 mg ONCE ONE Administration Sodium Chloride 10 ml 01/21/21 23:29 01/21/21 23:30 Sodium Chloride 0.9% 10ml Syr (Rad Only) IV 01/21/21 23:30 10 ml ONCE ONE Administration General Adult HPI - General Chief complaint: Urogenital-Female Stated complaint: pelvic pain and pressure Time Seen by Provider: 01/21/21 21:50 Mode of Arrival: Ambulatory Limitations: No Limitations Description of Symptoms (Recalled from ER Triage Doc. by RN): pt presented to [facility] because she was experiencing pressure and pain in her vaginal area. states she thought it might be a uti and wanted to be evaluated. reports she feels swollen down there and has alot of pain and pressure . vss. afebrile. - History of Present Illness HPI narrative: Sent from the urgent treatment center. States she has discomfort in her pelvic area which she describes as being perineum, perianal, left buttock. Hurts to sit on that area. No constipation or diarrhea, fever, vomiting, or urinary symptoms. She has had a prior total hysterectomy. She thought maybe she had a urinary tract infection, but urine was negative in the urgent treatment center so they sent her here for further evaluation. She is . No sexual intercourse
--- NOTE | 2021-01-21 22:14 | CT_ITS ---
PROCEDURE INFORMATION: Exam: CT Abdomen And Pelvis With Contrast Exam date and time: 01/21/2021 10:14 PM Age: 40 years old Clinical indication: Abdominal pain; Other: Pelvis area; Prior surgery; Surgery date: 6+ months; Surgery type: Hysterectomy; Additional info: Pelvic pain TECHNIQUE: Imaging protocol: Computed tomography of the abdomen and pelvis with contrast. Radiation optimization: All CT scans at this facility use at least one of these dose optimization techniques: automated exposure control; mA and/or kV adjustment per patient size (includes targeted exams where dose is matched to clinical indication); or iterative reconstruction. Contrast material: ISOVUE; Contrast volume: 75 ml; Contrast route: IV; COMPARISON: CT ABDOMEN PELVIS W CON 06/13/2019 8:21 AM FINDINGS: Liver: Normal. No mass. Gallbladder and bile ducts: Normal. No calcified stones. No ductal dilation. Pancreas: Normal. No ductal dilation. Spleen: Normal. No splenomegaly. Adrenal glands: Normal. No mass. Kidneys and ureters: Normal. No hydronephrosis. Stomach and bowel: Mild colonic diverticulosis noted. Appendix: No evidence of appendicitis. Intraperitoneal space: Unremarkable. No free air. No significant fluid collection. Vasculature: Unremarkable. No abdominal aortic aneurysm. Lymph nodes: Unremarkable. No enlarged lymph nodes. Urinary bladder: Unremarkable as visualized. Reproductive: Status post hysterectomy. Bones/joints: Unremarkable. No acute fracture. Soft tissues: Unremarkable. IMPRESSION: 1. No acute intra-abdominal pathology. No findings to explain the patient's pelvic pain. 2. Mild sigmoid diverticulosis without definite evidence of diverticulitis.
[2021-01-22 01:01] VITALS: BP 125/79; PULSE 82; RESP 18; TEMP 36.8; O2SAT 98
== END 2021-01-22 01:06 | disposition home or self-care (01) ==
LOC: UTC 18:51 → ER 21:08
PROVIDERS: Nurse Practitioner Family; Emergency Provider Emergency Medicine; PCP Family Medicine
DX: R10.2 Pelvic and perineal pain (principal); R10.32 Left lower quadrant pain; Z87.891 Personal history of nicotine dependence
CPT/HCPCS: 74177; 80053; 81003; 85025; 96374; 99282; Q9967

== ENCOUNTER → 2021-01-30 10:01 | Outpatient (CLI) | payer BC, MEDICAID, SELFPAY | PROVIDERS: PCP Internal Medicine Adolescent Medicine; Referring Provider Internal Medicine Adolescent Medicine; Visit Provider Internal Medicine Adolescent Medicine | DX: R39.89 Other symptoms and signs involving the genitourinary system (principal) | CPT/HCPCS: 87086 ==

== ENCOUNTER 2021-02-01 16:00 | Outpatient (RCR) | payer BC, MEDICAID, SELFPAY ==
--- NOTE | 2020-12-25 15:45 | HMH.PTOPEV ---
PT Outpatient Evaluation Rehab PT Outpatient Evaluation Start: 12/25/20 15:16 Freq: Status: Active Protocol: Document 12/25/20 15:24 ALFONZOSELENA (Rec: 12/25/20 15:45 PWSELENA [id number]) Electronically Signed By Mj Redd, PT 12/25/20 15:24 Outpatient Therapy Subjective History Subjective History This is the initial Physical Therapy evaluation for Francine Morales. Pt is a 40 y/o female referred to PT for c/o R alison scapular pain. Pt reprots pain began ~2-3 weeks ago. 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 Pt reports at time she did not feel pain but later that evening she began noticing pain in R medial inferior scauplar area and a few days later into neck. Chief Complaint Pain,Spasms,Stiff Symptom Type Ache,Throb,Sharp,Dull,Stabbing Symptoms Relieved By Rest/Positioning,OTC Meds, Prescription Meds Symptoms Aggravated By Physical Activity,Twisting, Lifting Prior Functional Limitations None Current Functional Limitations Lifting,Housework,Dressing, Driving,Sleeping,Recreation Activity,Bending/Stooping Symptom Description Constant but Variable Level of pain today (0-10) 5 Pain scale - at its best (0-10) 3 Pain scale - at its worst (0-10) 8 Cervical Eval Palpation Cervical Muscles R Thoracic Paraspinals Cervical/Thoracic Palpation Findings Tenderness,Trigger Point Passive Joint Mobility Cervical PIVM Dec: R C6/7 L C6/7 R C7/T1 L C7/T1 MMT Bilateral Deltoid (C5) 5 Normal Biceps Brachii Strength Grade 5 Normal Wrist Extension Strength Grade 5 Normal Triceps Brachii Strength Grade 5 Normal Wrist Flexion Strength Grade 5 Normal Special Test C-Spine Foraminal Compression ([place]) Negative Left,Negative Right Test C-Spine Foraminal Distraction Test Negative C-Spine Compression Test Negative Left,Negative Right Shoulder/Elbow Eval Shoulder Objective Measurements Shoulder ROM Bilateral
== END 2021-02-01 16:05 | disposition home or self-care (01) ==
LOC: PT 16:00
PROVIDERS: PCP Internal Medicine Adolescent Medicine; Visit Provider Internal Medicine Adolescent Medicine
DX: S29.012A Strain of muscle and tendon of back wall of thorax, initial encounter (principal)
CPT/HCPCS: 97010; 97012; 97014; 97110; 97140; 97163; 97164; G0283

== ENCOUNTER → 2021-04-17 16:16 | Outpatient (CLI) | payer BC, MEDICAID, SELFPAY | PROVIDERS: Visit Provider Nurse Practitioner Family | DX: R31.9 Hematuria, unspecified (principal) | CPT/HCPCS: 87086 ==

== ENCOUNTER 2021-04-28 11:15 | Emergency (ER) | payer BC, SELFPAY ==
[2021-04-28 12:27] VITALS: BP 137/91; PULSE 90; RESP 20; TEMP 36.9; O2SAT 97; BMI 35.5
[2021-04-28 13:05] LABS: Color,Urine Dark Yellow (Yellow)
[2021-04-28 13:06] LABS: Apearance,Urine Cloudy (Clear); Bilirubin,Urine Negative (Negative); Blood, Urine Negative (Negative); Glucose,Urine (UA) Negative (Negative); Ketones,Urine Negative (Negative); Protein,Urine Trace (Negative); Specific Gravity, Urine 1.025 (1.005-1.030); UTC Leukocyte Esterase,Urine Negative (Negative); UTC Nitrate,Urine Negative (Negative); Urobilinogen,Urine 0.2 EU/dl (0.2)
--- NOTE | 2021-04-28 13:12 | HMH.EDUTC ---
[facility] [place] Clinical Impression: Allergic reaction Qualifiers: Encounter type: initial encounter Qualified Code(s): T78.40XA - Allergy, unspecified, initial encounter Angioedema Qualifiers: Encounter type: initial encounter Qualified Code(s): T78.3XXA - Angioneurotic edema, initial encounter Disposition: Home, Self-Care Condition on Discharge: Good Instructions: DI for Adverse Drug Reaction -- Allergic Additional Instructions: Avoid contact with the offending substance. Don't start the oral steroids until tomorrow. Continue to take the benedryl every 6 hours around the clock for the next 3 days or so. Then take is as needed for itching or other symptoms. Don't take anymore of the restoril until you follow up with your doctor. Follow their instructions once you have saw them. Follow up with your regular doctor. GO TO THE ER FOR ANY WORSENING SYMPTOMS OR CONCERNS If you have any worsening swelling of your lips, shortness of breath, mouth swelling or any other concerns symptoms, please return to the ER margaret. Prescriptions: methylPREDNISolone [Medrol] 4 mg PO DIRECTED 6 Days #21 packet Transmission Status: Received by [id number] Referrals: Rodo House MD [Primary Care Provider] - Forms: Work/School Release Time of Disposition: 13:38 Medical Decision Making - Medical Records Medical records reviewed: No: I reviewed the patient's medical records. - Demarco Inquiry Pt receiving controlled substance: No Vital Signs: 04/28/21 12:27 04/28/21 13:39 Temperature 98.4 F 98.4 F Temperature Source Oral Pulse Rate 90 Pulse Rate [Left] 90 Respiratory Rate 20 20 Blood Pressure 137/91 H Blood Pressure [Right Arm] 137/91 H Blood Pressure Mean [Right Arm] 106 02 Sat by Pulse Oximetry 97 - Lab Data Lab Results 04/28/21 13:04: Urine Color Dark yellow, Urine Appearance Cloudy, Urine pH 6.0, Ur Specific [place] 1.025, Urine Protein Trace, Urine Glucose (UA) Negative, Urine Ketones Negative, Urine Blood Negative, Urine Nitrate Negative, Urine Bilirubin Negative, Urine Urobilinogen 0.2, Ur Leukocyte Esterase Negative Orders (Tests/Meds): ED MEDICATIONS Discontinued Medications Generic Name Dose Route Start Last Admin Trade Name Freq PRN Reason Stop Dose Admin Methylprednisolone Sodium Succinate 125 mg 04/28/21 13:12 04/28/21 13:17 Methylprednisolone Sod Succ 125mg Vial IM 04/28/21 13:13 125 mg ONCE ONE Administration [facility] [place] - General Stated complaint: swelling and itching Time Seen by Provider: 04/28/21 13:00 Mode of Arrival: Ambulatory Source of Information: Patient Limitations: No Limitations Description of Symptoms (Recalled from Triage Doc. by RN): pt c/o itching, burning and swelling on her mouth and rectum since 04/23. pt states she started resteril on 04/23 and is unsure if she may be having an allergic reaction to it. pt also c/o of lower abd pain in the bladder area. pt has a CT of the abd scheduled for next week by Dr. Power office. HEENT Symptoms (Recalled from RN notes): Yes (swelling, burning and itching of the lips) Resp Symptoms (Recalled from RN notes): No Skin Symptoms (Recalled from RN notes): No MS Symptoms (Recalled from RN notes): No Functional Status (Recalled from RN notes): na - History of Present Illness Provider Complaint: She states that she has been having lip swelling, burning of her lips, and irritation of her perianal area for the past 3 days. At first she thought the perianal symptoms were caused by hemorrhoids, but she does not have a history of them and used otc medication for them and it did not help. But then her lips started swelling also. She denies any tongue swelling, throat swelling, chest tightness, and chest pain. She denies any additional rash other that on her bottom. She started a new medication (restoril) 3 days before her symptoms started. She thinks that she might be allergic to that medication
[2021-04-28 13:39] VITALS: BP 137/91; PULSE 90; RESP 20; TEMP 36.9
== END 2021-04-28 13:43 | disposition home or self-care (01) ==
PROVIDERS: Emergency Provider Nurse Practitioner Family; PCP Internal Medicine Adolescent Medicine
DX: T78.3XXA Angioneurotic edema, initial encounter (principal); Z87.891 Personal history of nicotine dependence
CPT/HCPCS: 81003; 96372; 99202; G0463

== ENCOUNTER → 2021-05-07 08:57 | Outpatient (CLI) | payer BC, SELFPAY ==
--- NOTE | 2021-05-07 09:00 | CT_ITS ---
PROCEDURE: CT ABDOMEN PELVIS WO/W CON CLINICAL INDICATION: HEMATURIA COMPARISON: CT CT ABDOMEN PELVIS W CON from 01/21/2021 TECHNIQUE: IV Contrast: 75ML Isovue 370 Oral Contrast None Axial images obtained with sagittal and coronal reformats. All CT scans at the facility use one or more dose reduction, viz: automated exposure control, ma/kV adjustment per patient size (including targeted exams where dose is matched to indication, i.e. head), or iterative reconstruction technique. FINDINGS: LOWER THORAX: No acute finding ABDOMEN & PELVIS: The liver, spleen, pancreas, adrenal glands, and kidneys show no acute finding. No intestinal obstruction or free air. No evidence of appendicitis or diverticulitis. There are few colonic diverticula but no evidence of diverticulitis. There is a mild amount of retained colonic feces. Urinary bladder has an unremarkable appearance. No pelvic mass, abnormal fluid collection, or focal inflammatory change of the pelvis. No acute bony anomalies. Small sclerotic focus is present and T9 vertebral body superiorly and could be due to small bone island. Small bone island also suspected in the right femoral neck. IMPRESSION: No acute finding. No renal mass, renal calculi or other significant anomaly. Dictated by: Nino Deloen MD 05/08/2021 09:53 Nino Deleon MD in [place] 05/08/2021 09:53
== END ==
PROVIDERS: PCP Internal Medicine Adolescent Medicine; Visit Provider Nurse Practitioner Family
DX: R31.9 Hematuria, unspecified (principal)
CPT/HCPCS: 74178; Q9967

== ENCOUNTER 2021-05-14 11:01 | Emergency (ER) | payer BC, SELFPAY ==
[2021-05-14 11:25] VITALS: BP 153/72; PULSE 110; RESP 22; TEMP 37.2; O2SAT 100; BMI 28.5
[2021-05-14 11:49] LABS: UTC Strep Screen (Rapid) Negative (Negative)
[2021-05-14 11:50] LABS: UTC Influenza A Antigen Negative (Negative); UTC Influenza B Antigen Negative (Negative)
--- NOTE | 2021-05-14 11:50 | HMH.EDUTC ---
[facility] [place] Disposition Clinical Impression: Otitis media Qualifiers: Otitis media type: unspecified Laterality: right Qualified Code(s): H66.91 - Otitis media, unspecified, right ear Disposition: Home, Self-Care Condition on Discharge: Good Instructions: DI for Fever (Symptom) -- Adult, Nausea and Vomiting-Adult, Ondansetron Additional Instructions: *Monitor Temp, Over the counter Motrin or Tylenol as directed/as needed Tylenol every 4 hours and Motrin every 6 hours (as long as your family doctor has told you that you can take it) for fever or pain. and straight to ER if unable to lower temp less than 101.0 after medication given *Warm salt water gargles may help to soothe the throat *Throat Lozenges *Warm fluids like tea with honey may help to soothe the throat *Sleep elevated *Humidifier/Vaporizer Your throat swab was sent for culture. Those results are typically sent to your primary care. Be sure to follow up in 2-3 days with your family doctor/primary care physician if no improvement so they can review those result and treat if necessary. If you don?t have a primary care doctor, I recommend you get one but in the mean time, you will have to return to a walk in clinic Follow up IMMEDIATELY for new or worsening symptoms or no Noticeable improvement over the next 48-72 hours. 911 for difficulty breathing or swallowing You were tested for today for COVID19 your test result should be back in the next 24-48 hours, you check your results on the [facility] My Health Portal if you have trouble logging on you may call You was given a handout with instructions for Self Quarantine and Self isolation for while you wait on test results and what to do if they are positive If you are positive the Health Dept will be contacting you also Make sure to take your Vitamins Vit. C Vit D and Zinc if you can take them Prescriptions: Amoxicillin [Amoxicillin 500mg Cap] 500 mg PO TID #30 cap Transmission Status: Received by [id number] Ondansetron [Zofran 4mg ODT] 4 mg PO TIDP PRN #10 tab PRN Reason: Nausea Transmission Status: Received by [id number] Referrals: Rodo House MD [Primary Care Provider] - As needed Forms: Work/School Release Time of Disposition: 12:37 Medical Decision Making - Demarco Inquiry Pt receiving controlled substance: No Demarco was queried for this patient: No Vital Signs: 05/14/21 11:25 05/14/21 13:03 Temperature 99 F 99 F Temperature Source Oral Temporal Artery Scan Pulse Rate 110 H Pulse Rate [Right Brachial] 110 H Respiratory Rate 22 Blood Pressure 153/72 H Blood Pressure [Right Arm] 153/72 H Blood Pressure Mean [Right Arm] 99 Blood Pressure Source Automatic Cuff Blood Pressure Source [Right Arm] Automatic Cuff Blood Pressure Position Sitting Blood Pressure Position [Right Arm] Sitting 02 Sat by Pulse Oximetry 100 Oxygen Delivery Method Room Air Room Air - Lab Data Lab results reviewed: Yes: I reviewed the patient's lab results. Lab Results 05/14/21 11:36: Influenza Type A Ag Negative, Influenza Type B Ag Negative 05/14/21 11:36: Strep Scn Rapid Clinic Negative Orders (Tests/Meds): ED MEDICATIONS Discontinued Medications Generic Name Dose Route Start Last Admin Trade Name Lance PRN Reason Stop Dose Admin Acetaminophen 650 mg 05/14/21 12:35 05/14/21 12:38 Acetaminophen 325mg Tab PO 05/14/21 12:36 650 mg ONCE ONE Administration Ondansetron HCl 4 mg 05/14/21 12:03 05/14/21 12:10 Ondansetron 4mg/2ml Vial IM 05/14/21 12:04 4 mg ONCE ONE Administration ORDERS Category Date Time Status Strep Screen Confirmation Stat Micro 05/14/21 11:36 Received Medical Decision Narrative: 1235 Patient temp now 102.0 Temp trending down now 101.0 patient state that she feels better after medication no nausea or vomiting [facility] [place] HPI - General Stated complaint: fever/chills, sore throat, cough, h/a, congestion Time Seen by Provider:
[2021-05-14 13:03] VITALS: BP 153/72; PULSE 110; RESP 22; TEMP 37.2; O2SAT 100
== END 2021-05-14 13:08 | disposition home or self-care (01) ==
PROVIDERS: Emergency Provider Nurse Practitioner; PCP Internal Medicine Adolescent Medicine
DX: H66.91 Otitis media, unspecified, right ear (principal); Z20.822 Contact with and (suspected) exposure to COVID-19
CPT/HCPCS: 87804; 87880; 99202; C9803; G0463; J2405; U0003; U0005

== ENCOUNTER 2021-06-25 15:10 | Emergency (ER) | payer BC, SELFPAY ==
[2021-06-25 17:40] VITALS: BP 141/90; PULSE 89; RESP 19; TEMP 36.6; O2SAT 98
--- NOTE | 2021-06-25 18:11 | HMH.EDUTC ---
[facility] [place] Clinical Impression: Sinusitis Qualifiers: Sinusitis location: unspecified location Chronicity: unspecified Qualified Code(s): J32.9 - Chronic sinusitis, unspecified Disposition: Home, Self-Care Condition on Discharge: Good Instructions: Sinusitis, DI for Sinusitis, Methylprednisolone, Amoxicillin and Clavulanic Acid Additional Instructions: *Monitor Temp, Over the counter Motrin or Tylenol as directed/as needed Tylenol every 4 hours and Motrin every 6 hours (as long as your family doctor has told you that you can take it) for fever or pain. and straight to ER if unable to lower temp less than 101.0 after medication given *Warm salt water gargles may help to soothe the throat *Throat Lozenges *Warm fluids like tea with honey may help to soothe the throat *Sleep elevated *Humidifier/Vaporizer Follow up IMMEDIATELY for new or worsening symptoms or no Noticeable improvement over the next 48-72 hours. 911 for difficulty breathing or swallowing You were tested for today for COVID19 your test result should be back in the next 24-48 hours, you may Check your results on the [facility] My Health Portal if you have trouble logging on you may call You was given a handout with instructions for Self Quarantine and Self isolation for while you wait on test results and what to do if they are positive If you are positive the Health Dept will be contacting you also Make sure to take your Vitamins Vit. C Vit D and Zinc if you can take them Prescriptions: Benzonatate [Benzonatate 100mg cap] 100 mg PO Q8HP PRN #15 cap PRN Reason: Cough Transmission Status: Received by [facility] Amoxicillin/Potassium Clav [Augmentin 875-125 Tablet] 1 tab PO Q12H 10 Days #20 tab Transmission Status: Received by [facility] methylPREDNISolone [Medrol 4mg tab] 4 mg PO DIRECTED #21 tab Transmission Status: Received by [facility] Referrals: Rodo House MD [Primary Care Provider] - As needed Forms: Work/School Release Time of Disposition: 18:21 Medical Decision Making - Demarco Inquiry Pt receiving controlled substance: No Demarco was queried for this patient: No Vital Signs: 06/25/21 17:40 06/25/21 18:48 Temperature 97.9 F 97.9 F Temperature Source Oral Pulse Rate 89 Pulse Rate [Right Brachial] 89 Respiratory Rate 19 19 Blood Pressure 141/90 H Blood Pressure [Right Arm] 141/90 H Blood Pressure Mean [Right Arm] 107 Blood Pressure Source [Right Arm] Automatic Cuff Blood Pressure Position [Right Arm] Sitting 02 Sat by Pulse Oximetry 98 Oxygen Delivery Method Room Air - Lab Data Lab Results 06/25/21 18:33: Influenza Type A Ag Negative, Influenza Type B Ag Negative Orders (Tests/Meds): ED MEDICATIONS Discontinued Medications Generic Name Dose Route Start Last Admin Trade Name Freq PRN Reason Stop Dose Admin Methylprednisolone Sodium Succinate 125 mg 06/25/21 18:19 06/25/21 18:29 Methylprednisolone Sod Succ 125mg Vial IM 06/25/21 18:20 125 mg ONCE ONE Administration ORDERS Category Date Time Status Covid-19 Nasal PCR ([facility]) Routine Lab 06/25/21 17:50 Received Medical Decision Narrative: Patient states that she has taken Solu Medrol in the past without complications or reactions [facility] [place]PI - General Stated complaint: sore throat cough congestion Time Seen by Provider: 06/25/21 18:11 Mode of Arrival: Ambulatory Source of Information: Patient Limitations: No Limitations Description of Symptoms (Recalled from Triage Doc. by RN): PATIENT C/O SINUS PRESSURE, RIGHT EAR INFECTION, COUGH AND CHEST CONGESTION X 3 DAYS HEENT Symptoms (Recalled from RN notes): Yes Resp Symptoms (Recalled from RN notes): Yes Skin Symptoms (Recalled from RN notes): No MS Symptoms (Recalled from RN notes): No Functional Status (Recalled from RN notes): WNL - History of Present Illness Provider Complaint: Patient state that she has been having sinus pain and pressure,
[2021-06-25 18:42] LABS: UTC Influenza A Antigen Negative (Negative); UTC Influenza B Antigen Negative (Negative)
[2021-06-25 18:48] VITALS: BP 141/90; PULSE 89; RESP 19; TEMP 36.6; O2SAT 98
== END 2021-06-25 18:58 | disposition home or self-care (01) ==
PROVIDERS: Emergency Provider Nurse Practitioner; PCP Internal Medicine Adolescent Medicine
DX: J32.9 Chronic sinusitis, unspecified (principal); Z87.891 Personal history of nicotine dependence
CPT/HCPCS: 87804; 96372; 99202; C9803; G0463; U0003; U0005

== ENCOUNTER 2021-11-14 09:55 | Emergency (ER) | payer BC, SELFPAY ==
[2021-11-14 10:06] VITALS: BP 134/80; PULSE 87; RESP 19; TEMP 37.1; O2SAT 97; BMI 35.2
--- NOTE | 2021-11-14 10:08 | HMH.EDUTC ---
[facility] [place] Disposition Clinical Impression: Bronchitis Sinusitis Qualifiers: Sinusitis location: unspecified location Chronicity: acute Recurrence: non-recurrent Qualified Code(s): J01.90 - Acute sinusitis, unspecified Disposition: Home, Self-Care Condition on Discharge: Good Instructions: Sinusitis, DI for Sinusitis, DI for Acute Bronchitis Additional Instructions: Drink plenty of fluids. Take tylenol or ibuprofen for pain or fever. Take the medications as directed. Follow up with your regular doctor. GO TO THE ER FOR ANY WORSENING SYMPTOMS Don't start the oral steroids until tomorrow, since you had the shot here today. Prescriptions: Benzonatate [Benzonatate 100mg cap] 100 mg PO TIDP PRN #30 cap PRN Reason: Cough Transmission Status: Received by [facility] methylPREDNISolone [Medrol] 4 mg PO DIRECTED 6 Days #21 packet Transmission Status: Received by [facility] Azithromycin [Z-Renny 250mg Tab*] 250 mg PO UD DOSE PK #6 tab Transmission Status: Received by [id number] Referrals: Rodo House MD [Primary Care Provider] - Time of Disposition: 10:22 Medical Decision Making - Medical Records Medical records reviewed: No: I reviewed the patient's medical records. - Demarco Inquiry Pt receiving controlled substance: No Vital Signs: 11/14/21 10:06 11/14/21 10:28 Temperature 98.8 F 98.8 F Temperature Source Oral Pulse Rate 87 Pulse Rate [Left Radial] 87 Respiratory Rate 19 19 Blood Pressure 134/80 Blood Pressure [Right Arm] 134/80 Blood Pressure Mean [Right Arm] 98 02 Sat by Pulse Oximetry 97 - Lab Data Lab results reviewed: Yes: I reviewed the patient's lab results. Orders (Tests/Meds): ED MEDICATIONS Discontinued Medications Generic Name Dose Route Start Last Admin Trade Name Freq PRN Reason Stop Dose Admin Ceftriaxone Sodium 1 gm 11/14/21 10:11 11/14/21 10:21 Ceftriaxone 1gm Vial IM 11/14/21 10:12 1 gm ONCE ONE Administration Dexamethasone Sodium Phosphate 8 mg 11/14/21 10:11 11/14/21 10:21 Dexamethasone 4mg/Ml 1ml Vial IM 11/14/21 10:12 8 mg ONCE ONE Administration Lidocaine HCl 0 ml 11/14/21 10:11 11/14/21 10:21 Lidocaine 1% 5ml Pf Vial IM 11/14/21 10:12 2 ml ONCE ONE Administration [facility] [place] HPI - General Stated complaint: congestion, sore throat Time Seen by Provider: 11/14/21 10:08 - History of Present Illness Provider Complaint: She states that she has had sinus congestion and chest congestion for the past 2 days. - Related Data Home Medications Medication Instructions Recorded Confirmed citalopram 40 mg tablet 40 mg PO tab 07/18/21 07/18/21 Previous Rx's Medication Instructions Recorded estradiol 2 mg tablet See Rx Instructions .ROUTE 01/15/21 .COMPLEX #90 tab methylPREDNISolone [Medrol] 4 mg PO DIRECTED 6 Days #21 04/28/21 packet estradiol 0.1 mg/24 hr semiweekly 1 patch TOPICAL ONCE #24 each 07/18/21 transdermal patch ketorolac 10 mg tablet 10 mg PO Q6H PRN 5 Days #20 tab 07/18/21 Azithromycin [Z-Renny 250mg Tab*] 250 mg PO UD DOSE PK #6 tab 11/14/21 Benzonatate [Benzonatate 100mg 100 mg PO TIDP PRN #30 cap 11/14/21 cap] methylPREDNISolone [Medrol] 4 mg PO DIRECTED 6 Days #21 11/14/21 packet Allergies Allergy/AdvReac Type Severity Reaction Status Date / Time promethazine [From PHENERGAN] Allergy Unknown Verified 11/14/21 10:10 sumatriptan [From IMITREX] Allergy Unknown ANAPHYLAXIS Verified 11/14/21 10:10 temazepam [From Restoril] Allergy Verified 11/14/21 10:10 [facility] History - Hepatitis A Screen Attestation statement:: This patient has been screened for Hepatitis A risk factors. I have reviewed the patient's past medical history: Yes Medical History: Denies:: Cancer, Diabetes Mellitus Type 1, Diabetes Mellitus Type 2, Hypertension, MRSA Other Medical History: Reports: Other Laterality Cases: Right: Arthroscopy Shoulder,
[2021-11-14 10:28] VITALS: BP 134/80; PULSE 87; RESP 19; TEMP 37.1
== END 2021-11-14 10:29 | disposition home or self-care (01) ==
PROVIDERS: Emergency Provider Nurse Practitioner Family; PCP Internal Medicine Adolescent Medicine
DX: J20.9 Acute bronchitis, unspecified (principal); J01.90 Acute sinusitis, unspecified; Z87.891 Personal history of nicotine dependence
CPT/HCPCS: 96372; 99212; G0463; J0696

== ENCOUNTER → 2021-11-16 09:12 | Outpatient (CLI) | payer BC, SELFPAY ==
[2021-11-16 09:25] LABS: Coronavirus 19, PCR Not Detected (NotDetected); Influenza A, PCR Not Detected (NotDetected); Influenza B, PCR Not Detected (NotDetected)
== END ==
PROVIDERS: Visit Provider Internal Medicine Adolescent Medicine
DX: Z20.822 Contact with and (suspected) exposure to COVID-19 (principal); R05.9 Cough, unspecified
CPT/HCPCS: C9803; U0003; U0005

== ENCOUNTER 2022-04-29 15:25 | Emergency (ER) | payer BC, SELFPAY ==
[2022-04-29 15:26] VITALS: BP 139/77; PULSE 88; RESP 16; O2SAT 100; BMI 35.7
--- NOTE | 2022-04-29 15:56 | XR_ITS ---
FINAL REPORT CLINICAL HISTORY: dog bite FINDINGS: 2 views of the right hand were obtained. There is no acute fracture. There is no dislocation. The joint spaces are intact. There is no acute soft tissue abnormality. IMPRESSION: No acute fracture or foreign body. Reviewed, Interpreted and Dictated by Ayan Bruno MD Transcribed by Devin Pham Authenticated and . [facility]
--- NOTE | 2022-04-29 16:07 | HMH.EDANIB ---
Discharge Plan Disposition Patient Disposition: Home, Self-Care Condition: Good Prescriptions Prescriptions: New amoxicillin-pot clavulanate 875-125 mg tablet 1 tab PO BID Qty: 20 0RF No Action citalopram 40 mg tablet 40 mg PO ketorolac 10 mg tablet 10 mg PO Q6H PRN (Reason: pain) 5 Days Qty: 20 1RF estradiol 2 mg tablet See Rx Instructions .ROUTE .COMPLEX Qty: 90 3RF Dose Instruction: TAKE 1 TABLET BY MOUTH ONCE DAILY FOR SUPPLEMENT Rx Instructions: TAKE 1 TABLET BY MOUTH ONCE DAILY FOR SUPPLEMENT azithromycin 250 MG tablet 250 mg PO UD DOSE PK Qty: 6 0RF Rx Instructions: Take two (2) tablets today, then one (1) tablet days #2 thru #5 benzonatate 100 MG capsule 100 mg PO TIDP PRN (Reason: Cough) Qty: 30 0RF methylprednisolone 4 MG tablets,dose pack 4 mg PO DIRECTED 6 Days Qty: 21 0RF methylprednisolone 4 MG tablets,dose pack 4 mg PO DIRECTED 6 Days Qty: 21 0RF Referrals Follow up/Referrals: Jed Duran MD [Primary Care Provider] - See instructions Clinical Impressions Clinical Impression: Dog bite of extremity Instructions Patient Instructions: Animal Bites, DI for Dog Bite, DI for Animal Bites, Amoxicillin and Clavulanic Acid Discharge ED Provider: Ray Almazan Animal Bite HPI General Chief Complaint: Animal Bite Stated Complaint: dog bite Time Seen by Provider: 04/29/22 15:34 Mode of Arrival: Ambulatory Limitations: No Limitations Description of Symptoms (Recalled from ER Triage Doc. by RN): pt advises their Great Marcos was lunging at her son and when she pulled him off the dog bit her right hand. Pt has puncture wounds and swelling in the ring finger/ pinky finger area History of Present Illness HPI narrative: 41 yo/F presents s/p dog bite to right hand while trying to stop her great marcos from biting her son on the face. She denies any numbness or tingling or limitation of range of motion. States tetanus is up-to-date, denies any other injuries. No treatments prior to arrival Related Data Home Medications Medication Instructions Recorded Confirmed citalopram 40 mg tablet 40 mg PO 07/18/21 07/18/21 Previous Rx's Medication Instructions Recorded methylprednisolone 4 mg tablets in 4 mg PO DIRECTED 6 days #21 04/28/21 a dose pack packets ketorolac 10 mg tablet 10 mg PO Q6H PRN pain 5 days #20 07/18/21 tabs azithromycin 250 mg tablet 250 mg PO UD DOSE PK #6 tabs 11/14/21 benzonatate 100 mg capsule 100 mg PO TIDP PRN Cough #30 caps 11/14/21 methylprednisolone 4 mg tablets in 4 mg PO DIRECTED 6 days #21 11/14/21 a dose pack packets estradiol 2 mg tablet See Rx Instructions .Route 04/18/22 .COMPLEX #90 tabs amoxicillin 875 mg-potassium 1 tab PO BID #20 tabs 04/29/22 clavulanate 125 mg tablet Allergies Allergy/AdvReac Type Severity Reaction Status Date / Time promethazine [From PHENERGAN] Allergy Unknown Verified 11/14/21 10:10 sumatriptan [From IMITREX] Allergy Unknown ANAPHYLAXIS Verified 11/14/21 10:10 temazepam [From Restoril] Allergy Verified 11/14/21 10:10 [facility] Social History Smoking Status: Current every day smoker tobacco type: cigarettes packs per day: 1 alcohol intake: never substance use type: denies use current occupational status: employed Travel in the last 8 weeks: None housing: house ROS Obtained: Yes Systems reviewed as appropriate & no additional complaints except as documented Constitutional Constitutional: Reports system reviewed and no additional complaints, except as documented Eyes Eyes: Reports system reviewed and no additional complaints, except as documented ENT Ears, Nose, Mouth, and Throat: Reports system reviewed and no additional complaints, except as documented Cardiovascular Cardiovascular: Reports system reviewed and no additional complaints, except as documented Respiratory Respiratory:
--- NOTE | 2022-04-29 16:27 | PC.NURSE ---
updated pt on her and sons POC. No new needs at this time
[2022-04-29 17:32] VITALS: BP 146/91; PULSE 92; RESP 16; TEMP 36.8; O2SAT 98
== END 2022-04-29 17:34 | disposition home or self-care (01) ==
PROVIDERS: Emergency Provider Emergency Medicine; PCP Internal Medicine Adolescent Medicine
DX: S61.234A Puncture wound without foreign body of right ring finger without damage to nail, initial encounter (principal); S61.236A Puncture wound without foreign body of right little finger without damage to nail, initial encounter; W54.0XXA Bitten by dog, initial encounter; Z79.890 Hormone replacement therapy
CPT/HCPCS: 73120; 99283

== ENCOUNTER 2022-09-22 11:55 | Emergency (ER) | payer BC, SELFPAY ==
[2022-09-22 12:35] VITALS: BP 154/86; PULSE 90; RESP 18; TEMP 36.7; O2SAT 98; BMI 34.9
--- NOTE | 2022-09-22 13:17 | EXP.UTC ---
Discharge Plan Disposition Patient Disposition: Home, Self-Care Condition: Good Prescriptions Prescriptions: New benzonatate 100 mg capsule 100 mg PO TID PRN (Reason: cough) Qty: 20 0RF methylprednisolone [Medrol (Renny)] 4 mg tablets,dose pack See Rx Instructions .Route .COMPLEX 6 Days Qty: 21 0RF Rx Instructions: taper pack; amoxicillin-pot clavulanate 875-125 mg Tablet 1 tab PO Q12H Qty: 20 0RF No Action citalopram 40 mg tablet 40 mg PO ketorolac 10 mg tablet 10 mg PO Q6H PRN (Reason: pain) 5 Days Qty: 20 1RF estradiol 2 mg tablet See Rx Instructions .ROUTE .COMPLEX Qty: 90 3RF Dose Instruction: TAKE 1 TABLET BY MOUTH ONCE DAILY FOR SUPPLEMENT Rx Instructions: TAKE 1 TABLET BY MOUTH ONCE DAILY FOR SUPPLEMENT azithromycin 250 MG tablet 250 mg PO UD DOSE PK Qty: 6 0RF Rx Instructions: Take two (2) tablets today, then one (1) tablet days #2 thru #5 benzonatate 100 MG capsule 100 mg PO TIDP PRN (Reason: Cough) Qty: 30 0RF methylprednisolone 4 MG tablets,dose pack 4 mg PO DIRECTED 6 Days Qty: 21 0RF amoxicillin-pot clavulanate 875-125 mg tablet 1 tab PO BID Qty: 20 0RF methylprednisolone 4 MG tablets,dose pack 4 mg PO DIRECTED 6 Days Qty: 21 0RF Referrals Follow up/Referrals: Jed Duran MD [Primary Care Provider] - See instructions Activity Restrictions/Add. Instructions Additional Instructions/Restrictions: *Monitor Temp, Over the counter Motrin or Tylenol as directed/as needed Tylenol every 4 hours and Motrin every 6 hours (as long as your family doctor has told you that you can take it) for fever or pain. and straight to ER if unable to lower temp less than 101.0 after medication given *Warm salt water gargles may help to soothe the throat *Throat Lozenges? *Warm fluids like tea with honey may help to soothe the throat? *Sleep elevated *Humidifier/Vaporizer Take medication as prescribed Follow up IMMEDIATELY for new or worsening symptoms or no Noticeable improvement over the next 48-72 hours. 911 for difficulty breathing or swallowing Clinical Impressions Clinical Impression: Sinusitis Instructions Patient Instructions: DI for Sinusitis, Sinusitis Discharge ED Provider: Nicole Ennis [facility] [place] HPI General Stated complaint: right ear pain, sinus pressure, sore throat Mode of Arrival: Ambulatory Source of Information: Patient Limitations: No Limitations Time Seen by Provider: 09/22/22 13:18 Description of Symptoms (Recalled from Triage Doc. by RN): PATIENT C/O SINUS DRAINAGE, RIGHT SIDE SINUS PRESSURE, RIGHT EAR PAIN, SORE THROAT, AND PRODUCTIVE COUGH WITH GREEN MUCOUS HEENT Symptoms (Recalled from RN notes): Yes Resp Symptoms (Recalled from RN notes): Yes Skin Symptoms (Recalled from RN notes): No MS Symptoms (Recalled from RN notes): No Functional Status (Recalled from RN notes): WNL History of Present Illness Provider Complaint: Patient states that she feels like she has a bad sinus infection State that she has been having pain and pressure in the right side of her sinuses, pain in right ear with drainage in the back of her throat and sore throat States that she feels like it is trying to move into her chest and wanted to get checked Related Data Home Medications Medication Instructions Recorded Confirmed citalopram 40 mg tablet 40 mg PO 07/18/21 07/18/21 Previous Rx's Medication Instructions Recorded methylprednisolone 4 mg tablets in 4 mg PO DIRECTED 6 days #21 04/28/21 a dose pack packets ketorolac 10 mg tablet 10 mg PO Q6H PRN pain 5 days #20 07/18/21 tabs azithromycin 250 mg tablet 250 mg PO UD DOSE PK #6 tabs 11/14/21 benzonatate 100 mg capsule 100 mg PO TIDP PRN Cough #30 caps 11/14/21 methylprednisolone 4 mg tablets in 4 mg PO DIRECTED 6 days #21 11/14/21 a dose pack packets estradiol 2 mg tablet See Rx Instructions .Route 04/18/22 .COMPLEX #90
[2022-09-22 13:29] VITALS: BP 154/86; PULSE 90; RESP 18; TEMP 36.7; O2SAT 98
== END 2022-09-22 13:33 | disposition home or self-care (01) ==
PROVIDERS: Emergency Provider Nurse Practitioner; PCP Internal Medicine Adolescent Medicine
DX: J01.90 Acute sinusitis, unspecified (principal); R05.1 Acute cough; F17.210 Nicotine dependence, cigarettes, uncomplicated
CPT/HCPCS: 99212; 99214; G0463

== ENCOUNTER → 2022-11-08 13:26 | Outpatient (CLI) | payer BC, SELFPAY ==
--- NOTE | 2022-11-08 13:38 | XR_ITS ---
FINAL REPORT CLINICAL HISTORY: Acute low back pain FINDINGS: 5 views of the lumbar spine were obtained. There is no evidence of fracture or dislocation. The vertebral alignment is normal. There are mild degenerative changes in the lower lumbar spine with facet arthropathy at L4-5 and L5-S1. No paraspinous soft tissue abnormalities identified. IMPRESSION: Degenerative change with no acute bony abnormality. Reviewed, Interpreted and Dictated by Lewis Browne III, MD Transcribed by Nichole Jackson Authenticated and [facility]
--- NOTE | 2022-11-08 13:38 | XR_ITS ---
FINAL REPORT CLINICAL HISTORY: Lower back pain, no known injury FINDINGS: SACROILIAC JOINT 3 views were obtained. There is no acute fracture or dislocation. There are mild degenerative changes of the sacroiliac joints. There is no soft tissue abnormality. IMPRESSION: Degenerative change with no acute bony abnormality. Reviewed, Interpreted and Dictated by Lewis Browne III, MD Transcribed by Nichole Jackson Authenticated and [facility]
== END ==
PROVIDERS: PCP Internal Medicine Adolescent Medicine; Visit Provider Physician Assistant
DX: M54.50 Low back pain, unspecified (principal); M53.3 Sacrococcygeal disorders, not elsewhere classified
CPT/HCPCS: 72110; 72220

== ENCOUNTER 2023-06-20 16:20 | Emergency (ER) | payer BC, SELFPAY ==
[2023-06-20 17:00] VITALS: BP 143/81; PULSE 83; RESP 21; TEMP 36.6; O2SAT 98; BMI 36.1
--- NOTE | 2023-06-20 17:03 | ED_ITS ---
Discharge Plan Disposition Patient Disposition: Home, Self-Care Condition: Good Prescriptions Prescriptions: New amoxicillin [amoxicillin] 875 mg tablet 875 mg PO Q12H Qty: 20 0RF benzonatate [benzonatate] 100 mg capsule 100 mg PO TIDP PRN (Reason: Cough) Qty: 30 0RF methylprednisolone 4 mg Tablets,Dose Pack 4 mg PO DIRECTED 6 Days Qty: 21 0RF Rx Instructions: Take 1 pack as directed for 6 days ondansetron 4 mg Tablet,Disintegrating 4 mg PO Q8H PRN (Reason: Nausea) Qty: 12 0RF No Action citalopram 40 mg tablet 40 mg PO DAILY trazodone 100 mg tablet 100 mg PO DAILY estradiol 2 mg tablet 2 mg PO DAILY Referrals Follow up/Referrals: Jed Duran MD [Primary Care Provider] - See instructions Activity Restrictions/Add. Instructions Additional Instructions/Restrictions: Drink plenty of fluids. Take tylenol or ibuprofen for pain or fever. Take the medications as directed. Follow up with your regular doctor. GO TO THE ER FOR ANY WORSENING SYMPTOMS Clinical Impressions Clinical Impression: Sinusitis, Otitis media, Acute viral syndrome Stand Alone Forms Stand Alone Forms: Work/School Release Instructions Patient Instructions: Middle Ear Infection, DI for Sinusitis, DI for Viral Syndrome Discharge ED Provider: Rodo Das [facility] General Stated complaint: sore throat, congestion, body aches, r ear pain Time Seen by Provider: 06/20/23 17:03 History of Present Illness Provider Complaint: She states that for the past 1 day she has had fever, chills, body aches, sinus congestion, and right ear pain. She has a nonproductive cough, but she denies shortness of breath. Related Data Home Medications Medication Instructions Recorded Confirmed citalopram 40 mg tablet 40 mg PO DAILY 06/20/23 06/20/23 estradiol 2 mg tablet 2 mg PO DAILY 06/20/23 06/20/23 trazodone 100 mg tablet 100 mg PO DAILY 06/20/23 06/20/23 Previous Rx's Medication Instructions Recorded amoxicillin 875 mg tablet 875 mg PO Q12H #20 tabs 06/20/23 benzonatate 100 mg capsule 100 mg PO TIDP PRN Cough #30 caps 06/20/23 methylprednisolone 4 mg tablets in 4 mg PO DIRECTED 6 days #21 tabs 06/20/23 a dose pack ondansetron 4 mg disintegrating 4 mg PO Q8H PRN Nausea #12 tabs 06/20/23 tablet Allergies Allergy/AdvReac Type Severity Reaction Status Date / Time promethazine [From PHENERGAN] Allergy Unknown Verified 11/14/21 10:10 sumatriptan [From IMITREX] Allergy Unknown ANAPHYLAXIS Verified 11/14/21 10:10 temazepam [From Restoril] Allergy Verified 11/14/21 10:10 [facility] Disclaimer: The information contained in this section may have been updated after the patient was seen, as this information can be updated by other users. Social History Smoking Status: Current every day smoker tobacco type: cigarettes packs per day: 1 alcohol intake: never substance use type: denies use current occupational status: employed Travel in the last 8 weeks: None housing: house ROS Obtained: Yes All systems reviewed & no additional complaints except as documented Constitutional Constitutional: Reports chills and Reports fever(s) Eyes Eyes: Denies eye discharge ENT Ears, Nose, Mouth, and Throat: Reports as per HPI Cardiovascular Cardiovascular: Denies chest pain Respiratory Respiratory: Denies chest congestion and Reports cough Gastrointestinal Gastrointestingal: Reports nausea; Denies abdominal pain, constipation, cramping, diarrhea or vomiting Musculoskeletal Musculoskeletal: Denies arthralgias Integumentary/Breasts Skin/Breast: Denies rash Neurologic Neurologic: Denies paresthesias Physical Exam General General appearance: alert and in no apparent distress Head Head exam: atraumatic, normocephalic and normal inspection Eye Eye exam: Present normal appearance; Absent PERRL or EOMI ENT ENT exam: Present mucous membranes moist and normal external ear exam Expanded ENT Exam TM/Canal exam: Bilateral TM: erythema, bulging and effusion Nose exam: Absent sinus tenderness Nasal speculum exam: Bilateral: normal Mouth exam: Present normal external inspection and other; Absent drooling Teeth exam: Present normal inspection Throat exam: Present tonsillar erythema and tonsillomegaly Neck Neck exam: Present normal inspection, full ROM and trachea midline; Absent tenderness, meningismus or lymphadenopathy Chest Chest inspection: Present normal inspection and symmetric chest wall rise; Absent tenderness Respiratory Respiratory exam: Present normal lung sounds bilaterally; Absent respiratory distress, wheezes or stridor Cardiovascular Cardiovascular exam: Present regular rate, normal rhythm and normal heart sounds; Absent tachycardia or irregular rhythm Abdominal Exam Abdominal exam: Present soft and normal bowel sounds; Absent distention, tenderness, guarding, rebound or rigidity Extremities Exam Extremities exam: Present normal inspection and normal capillary refill; Absent tenderness, joint swelling or calf tenderness Back Exam Back exam: Present normal inspection and full ROM; Absent tenderness, CVA tenderness (R) or CVA tenderness (L) Neurological Exam Neurological exam: Present alert, oriented X3, CN II-XII intact, normal gait and reflexes normal; Absent motor sensory deficit Psychiatric Psychiatric exam: Present normal affect and normal mood Skin Skin exam: Present warm, dry, intact and normal color Lymphatic Lymphatic Findings: no adenopathy Medical Decision Making Medical Records Medical records reviewed: No I reviewed the patient's medical records. Demarco Inquiry Pt receiving controlled substance: No Lab Data Lab results reviewed: Yes I reviewed the patient's lab results.
[2023-06-20 17:26] LABS: UTC Influenza A Antigen Negative (Negative); UTC Strep Screen (Rapid) Negative (Negative)
[2023-06-20 17:27] LABS: UTC Influenza B Antigen Negative (Negative)
[2023-06-20 17:28] VITALS: BP 143/81; PULSE 83; RESP 21; TEMP 36.6; O2SAT 98
== END 2023-06-20 17:30 | disposition home or self-care (01) ==
PROVIDERS: Emergency Provider Nurse Practitioner Family; PCP Internal Medicine Adolescent Medicine
DX: H66.93 Otitis media, unspecified, bilateral (principal); J01.90 Acute sinusitis, unspecified; R50.9 Fever, unspecified; R05.9 Cough, unspecified; R07.0 Pain in throat; R09.81 Nasal congestion; M79.18 Myalgia, other site; B34.9 Viral infection, unspecified; F17.210 Nicotine dependence, cigarettes, uncomplicated
CPT/HCPCS: 87635; 87804; 87880; 99212; 99214; G0463